=== PATIENT | female | born 1995 | race Native Hawaiian/Other Pacific Islander ===

== ENCOUNTER 2018-10-01 00:16 | Emergency (ER) | payer OTHER ==
[2018-10-01 00:29] VITALS: O2SAT 100
[2018-10-01 00:59] LABS: HCG,QUALITATIVE URINE NEGATIVE (NEGATIVE)
[2018-10-01 01:05] LABS: SQUAMOUS EPITHIAL 15 /hpf (0-5); URINE AMORPHOUS SEDIMENT RARE /ul (<OCC); URINE BACTERIA RARE (<OCC); URINE BILIRUBIN NEGATIVE (NEGATIVE); URINE BLOOD 2+ (NEGATIVE); URINE CLARITY Hazy (Clear); URINE COLOR Yellow (YELLOW); URINE GLUCOSE (UA) NORMAL (Normal); URINE LEUKOCYTE ESTERASE 3+ Leu/uL (Negative); URINE PROTEIN NEGATIVE (NEGATIVE); URINE UROBILINOGEN NORMAL mg/dL (0.2-1.0)
[2018-10-01] MEDS ORDERED: cefTRIAXone (Rocephin) 250 mg Inj IM STA (02:28)
[2018-10-01] MEDS ORDERED: Emtricitabine-Tenofovir 200 mg-300 mg Tab PO STA ×2 (02:49)
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
[2018-10-01 04:14] VITALS: BP 119/81; PULSE 81; RESP 20; TEMP 98
== END 2018-10-01 04:14 | disposition home or self-care (01) ==
LOC: C.ER 00:16
DX: T76.21XA Adult sexual abuse, suspected, initial encounter (principal)
CPT/HCPCS: 81001; 84703; 86703; 96372; 99285; J0696